=== PATIENT | female | born 1965 | race African-American/Black ===

== ENCOUNTER 2022-05-21 15:50 | Outpatient (CLI) | payer OTHER | END 2022-05-21 15:51 | disposition home or self-care (01) | LOC: MRI 15:50 | PROVIDERS: ATTEND Family Medicine | DX: R47.89 Other speech disturbances (principal); R41.89 Other symptoms and signs involving cognitive functions and awareness; R32 Unspecified urinary incontinence | CPT/HCPCS: 70551 ==